=== PATIENT | female | born 1975 | race Two or more races ===

== ENCOUNTER → 2025-05-14 | Outpatient (CLI) | payer BC, SELFPAY ==
--- NOTE | 2025-05-14 | XR_ITS ---
Examination: Transvaginal ultrasound of the pelvis, complete Technique: Transvaginal sonographic images pelvis performed using galaviz scale imaging Exam date and time: May 14, 2025 1206 hours INDICATIONS: Pelvic swelling 5 years FINDINGS: Soft tissue mass in the uterine fossa 2.1 x 1.3 x 1.8 cm Right ovary 2.6 cm arterial flow Left ovary removed IMPRESSION: Soft tissue mass in the uterine fossa 2.1 x 1.3 x 1.8 cm, recommend MRI pelvis follow-up pre and post intravenous contrast to assess this mass.
--- NOTE | 2025-05-14 11:45 | XR_ITS ---
Examination: Pelvic ultrasound, transabdominal, complete Technique: Transabdominal ultrasound of the pelvis performed using grayscale imaging Date and time of exam: May 14, 2025 1158 hours INDICATIONS: Pelvic swelling 5 years, history left nephrectomy and hysterectomy 4 years ago FINDINGS: Absent uterus Right ovary 3.5 cm arterial flow Left ovary absent IMPRESSION: No right ovarian enlargement Please see the transvaginal examination
== END | disposition home or self-care (01) ==
PROVIDERS: PCP Nurse Practitioner Family; Referring Provider Nurse Practitioner Family; Visit Provider Nurse Practitioner Family
DX: R19.09 Other intra-abdominal and pelvic swelling, mass and lump (principal)
CPT/HCPCS: 76830; 76856

== ENCOUNTER → 2025-05-19 | Outpatient (CLI) | payer BC, SELFPAY ==
[2025-05-19 17:00] LABS: Anion Gap 9 (7-16); BUN/Creatinine Ratio 15 Ratio (12-20); Blood Urea Nitrogen 12 mg/dL (9-23); Calcium 8.6 mg/dL (8.3-10.6); Carbon Dioxide 28.4 mMol/L (20.0-31.0); Chloride 104 mMol/L (98-107); Creatinine (Component) 0.8 mg/dL (0.6-1.3); Glucose 112 mg/dL (74-106); Osmolality,Calculated 281 (275-295); Potassium 4.3 mMol/L (3.4-5.1); Sodium 141 mMol/L (136-145); eGFR > 60 See Note
== END | disposition home or self-care (01) ==
LOC: COPL 15:37
PROVIDERS: PCP Nurse Practitioner Family; Referring Provider Specialist; Visit Provider Nurse Practitioner Family
DX: R19.09 Other intra-abdominal and pelvic swelling, mass and lump (principal)
CPT/HCPCS: 36415; 80048

== ENCOUNTER → 2025-05-27 | Outpatient (CLI) | payer BC, SELFPAY ==
--- NOTE | 2025-05-27 17:15 | XR_ITS ---
Examination: MRI pelvis with intravenous contrast. MRI pelvis without intravenous contrast. Date and time of exam: May 27, 2025 1753 hours INDICATIONS: Pelvic swelling and pain, 5 years, pelvic sonogram May 14, 2025 soft tissue mass in the uterine fossa 2.1 x 1.3 x 1.8 cm Technique: Multiple axial, sagittal and coronal sections of the pelvis obtained. Transverse images, TR 6020, TE 107. T1 weighted transverse images, TR 582, TE 9.5. T2-weighted sagittal images, TR 4000, TE 105. T2-weighted sagittal images, TR 4000, TE 5. Coronal images, TR 4210, TE 107. Axial and coronal images are obtained post third cc intravenous injection, gadolinium. Findings: Absent uterus Cystic solid mass in the left pelvis, 38 x 33 mm No free fluid in the cul-de-sac Urinary bladder intact Right ovary 2.2 cm Postcontrast images demonstrate right enhancement of the cystic mass in the pelvis IMPRESSION: Predominantly cystic mass in the left pelvis 38 x 33 mm, likely left ovarian cystic mass Recommend repeat transabdominal pelvic sonography with the radiologist in attendance
== END | disposition home or self-care (01) ==
LOC: SMRI 16:50
PROVIDERS: PCP Nurse Practitioner Family; Referring Provider Nurse Practitioner Family; Visit Provider Nurse Practitioner Family
DX: N94.89 Other specified conditions associated with female genital organs and menstrual cycle (principal)
CPT/HCPCS: 72197; A9579